=== PATIENT | male | born 1940 | race Caucasian/White ===

== ENCOUNTER 2016-08-03 08:21 | Outpatient (CLI) | payer MEDICARE, BC ==
[~2016-08-03] VITALS: Ht 190.5 cm; Wt 83.6 kg
[2016-08-03] MEDS ORDERED: GLUCOPHAGE1000 MG PO (08:43)
[2016-08-03] MEDS ORDERED: ULTRAM50 MG PO (08:43)
[2016-08-03] MEDS ORDERED: ELIQUIS5 MG PO (08:44)
[2016-08-03] MEDS ORDERED: DIOVAN160 MG PO (08:45)
[2016-08-03] MEDS ORDERED: LIPITOR10 MG PO (08:45)
[2016-08-03] MEDS ORDERED: CARDIZEM CD240 MG PO (08:45)
[2016-08-03] MEDS ORDERED: ZOLOFT100 MG PO (08:46)
[2016-08-03] MEDS ORDERED: TOPROL XL25 MG PO (08:46)
[2016-08-03] MEDS ORDERED: CORDARONE200 MG PO (08:47)
[2016-08-03] MEDS ORDERED: FLOMAX0.4 MG PO (08:47)
[2016-08-03 09:04] VITALS: BP 131/64; Ht 190.5 cm; Wt 83.6 kg
--- NOTE | 2016-08-03 09:52 | NUR ---
[address] VIA WC
--- NOTE | 2016-08-03 10:47 | NUR ---
1025 PT. HAS BEEN PRE-MEDICATED WITH TYLENOL AND BENADRYL PER AUG. 1ST UNIT CHECKED AT BEDSIDE BY THIS NURSE AND KENNETH ELLSWORTH RN, INITIATED BY ALARIS PUMP AT 50/CC/HR WITHOUT PROBLEMS.PT ALREADY BEGINNING TO DOSE FROM PRE-MEDS. 1040. PT. DOSING. IV SITE PATENT. BLOOD RATE INCREASED TO 100/CC/HR.
--- NOTE | 2016-08-03 10:58 | NUR ---
1055 PT OPENS EYES WITH TEMPORAL CHECK, RETURNS TO DOSING, DENIES PROBLEMS, NO REQUESTS, RATE INCREASED TO 150/CC/HR.
--- NOTE | 2016-08-03 11:18 | NUR ---
1110 PT AWAKE, DIET COLA SERVED, ADA LUNCH ORDERED, DENIES PROBLEMS WITH BLOOD, RATE AT 150/CC/HR.
--- NOTE | 2016-08-03 11:28 | NUR ---
1125 ADA LUNCH SERVED, SITTING ON SIDE OF BED TO EAT.
--- NOTE | 2016-08-03 18:22 | NUR ---
1225 PT UP TO BR FOR VOID AND BM, WHILE UP TO BATHROOM PT PULLED/ACCIDENTLY DISCONNECTED BLOOD AND CONTAMINATED TIP WITH APPROXIMATELY 50CC LEFT IN BAG. PT. RETURNED TO BED, FRESH BLOOD TUBING. PT REPEATS QUESTIONS AND HAS SHORT TERM MEMORY ISSUES. 1245 2ND UNIT BLOOD CHECKED AT BEDSIDE BY THIS NURSE AND VIBHA LOMAS RN INITIATED AT 50/CC/HR 1300 NO PROBLEMS WITH BLOOD NOTED RATE INCREASED TO 100/CC/HR 1315 PT. DOSING, RATE INCREASED TO 150/CC/HR, AT BEDSIDE. BACK FROM SHOPING. 1345. RATE INCREASED TO 200/CC/HR. 1445. PT. VOIDS IN URINAL. STATES HIS MEMORY ISSUES ARE RECENT ISSUE FOR HIM.
--- NOTE | 2016-08-03 18:30 | NUR ---
1525 BLOOD HAS COMPLETED, LINE BEING FLUSHED WITH NS. 1625 1 HOUR POST CHECK DONE, DENIES PROBLEMS. IV DC'D WITH CATH INTACT. DC INSTS REVIEWED. RELEASED IN WC. [employer].
== END 2016-08-03 16:30 | disposition home or self-care (01) ==
LOC: D.CT 08:21 → D.OPS 10:00 → D.CT 16:30
DX: M25.552 Pain in left hip (principal); D64.9 Anemia, unspecified

== ENCOUNTER → 2017-05-04 09:57 | Outpatient (CLI) | payer MEDICARE, BC ==
[2016-08-03 09:04] VITALS: BMI 23.0
[~2017-05-04 09:57] MED LIST: CARDIZEM CD240 MG PO; CORDARONE200 MG PO; DIOVAN160 MG PO; ELIQUIS5 MG PO; FLOMAX0.4 MG PO; GLUCOPHAGE1000 MG PO; LIPITOR10 MG PO; TOPROL XL25 MG PO; ULTRAM50 MG PO; ZOLOFT100 MG PO
== END | disposition home or self-care (01) ==
LOC: D.RT 09:57
DX: Z92.29 Personal history of other drug therapy (principal)